=== PATIENT | female | born 1990 | race Caucasian/White ===

== ENCOUNTER 2023-09-23 20:22 | Emergency (ER) | payer OTHER ==
[~2023-09-23] VITALS: Ht 162.6 cm; Wt 73.5 kg
[2023-09-23 20:33] VITALS: BP 139/86; PULSE 68; RESP 16; TEMP 97.8; O2SAT 99
[2023-09-23] MEDS ORDERED: ACET-2619 PO (22:22)
[2023-09-23] MEDS ORDERED: IBUP-2213 PO (22:22)
[2023-09-23 22:37] VITALS: BP 135/86; PULSE 68; RESP 16; TEMP 97.8; O2SAT 99
== END 2023-09-23 22:37 | disposition home or self-care (01) ==
LOC: MED 20:22
DX: S90.211A Contusion of right great toe with damage to nail, initial encounter (principal); X58.XXXA Exposure to other specified factors, initial encounter; Y93.89 Activity, other specified; Y92.89 Other specified places as the place of occurrence of the external cause; Y99.8 Other external cause status
CPT/HCPCS: 73660; 99283